=== PATIENT | female | born 1950 | race African-American/Black ===

== ENCOUNTER 2020-10-17 22:33 | Inpatient (IN) | payer BC, MEDICARE ==
[2020-10-16] MEDS: ALBUTEROL (0.083%) 2.5MG/3ML NEB HHN SCH (23:45)
[~2020-10-17] VITALS: Ht 172.7 cm; Wt 82.6 kg
[2020-10-17] MEDS ORDERED: IPRATROPIUM BROMIDE (0.02%) 0.5MG/2.5ML NEB HHN STA (22:53)
[2020-10-17] MEDS ORDERED: METHYLPREDNISOLONE SOD SUCC 125 MG/2 ML VIAL IV STA (22:53)
[2020-10-17] MEDS ORDERED: MAGNESIUM 2 G PREMIX 50 ML IV ONE (23:00)
[2020-10-17] MEDS: ALBUTEROL (0.083%) 2.5MG/3ML NEB HHN SCH (23:05)
[2020-10-18] VITALS (95 sets, daily range): BP systolic 92–160; BP diastolic 29–91
[2020-10-18] MEDS: ALBUTEROL (0.083%) 2.5MG/3ML NEB HHN SCH
[2020-10-18] MEDS ORDERED: MORPHINE SULFATE 2 MG/ML CPJ (NOT FOR IM USE) IV ONE
[2020-10-18 00:07] LABS: BASOPHILS % 0.5 % (0.0-2.0); EOSINOPHILS % 0.8 % (0.0-5.0); HEMOGLOBIN. 12.1 g/dL (12.0-16.0); LYMPHOCYTES % 48.7 % (20.0-50.0); MEAN CORPUSCULAR HEMOGLOBIN 29.7 pg (28.0-32.0); MEAN CORPUSCULAR VOLUME 90.9 fL (81.0-99.0); MEAN PLATELET VOLUME 9.8 fl (7.4-10.4); MONOCYTES % 4.9 % (2.0-8.0); NEUTROPHILS % 45.1 % (40.0-76.0); PLATELET 263 x1000/uL (130-400); RED BLOOD CELL COUNT 4.08 mill/uL (4.2-5.4); RED CELL DISTRIBUTION WIDTH 14.9 % (11.6-14.6)
[2020-10-18 00:15] LABS: CHLORIDE 107 mEq/L (98-107)
[2020-10-18 00:17] LABS: PROTHROMBIN TIME 11.2 sec (9.6-11.0)
[2020-10-18] MEDS ORDERED: ASPIRIN 325MG EC TABLET PO NR (00:30)
[2020-10-18] MEDS ORDERED: SODIUM CHLORIDE 0.9% 1000ML BAG (SEPSIS BOLUS) IV NR (01:00)
[2020-10-18] MEDS ORDERED: LEVOFLOXACIN 750MG PREMIX 150 ML IV NR (01:00)
[2020-10-18 04:37] LABS: CLARITY URINE CLOUDY (CLEAR); COLOR URINE YELLOW (YELLOW); KETONES URINE TRACE (NEGATIVE); LEUKOCYTE ESTERASE URINE 2+ (NEGATIVE); NITRITE URINE POSITIVE (NEGATIVE); OCCULT BLOOD URINE TRACE (NEGATIVE); PROTEIN URINE 1+ (NEGATIVE); SPECIFIC GRAVITY URINE 1.019 (1.005-1.030)
[2020-10-18] MEDS ORDERED: LIDOCAINE HCL/PF 1% 2ML VIAL ONE (09:00)
[2020-10-18] MEDS ORDERED: CLONIDINE 0.1MG TABLET PO PRN (10:00)
[2020-10-18] MEDS ORDERED: LEVOFLOXACIN 500MG PREMIX 100 ML IV SCH (10:00)
[2020-10-18] MEDS ORDERED: ONDANSETRON HCL 4MG/2ML INJ IV PRN (10:00)
[2020-10-18] MEDS ORDERED: GUAIFENESIN 200MG/10ML SUGAR FREE UDC PO PRN (10:00)
[2020-10-18] MEDS ORDERED: ACETAMINOPHEN 325MG TABLET PO PRN (10:00)
[2020-10-18] MEDS: FUROSEMIDE 40MG/4ML VIAL IVP SCH (10:53)
[2020-10-18] MEDS ORDERED: LEVOFLOXACIN 750MG PREMIX 150 ML IV SCH (11:00)
[2020-10-18] MEDS ORDERED: IOHEXOL-300 100 ML BOTTLE ONE (11:15)
[2020-10-18] MEDS ORDERED: DEXTROSE 50% WATER 50ML SYRINGE IV PRN (12:15)
[2020-10-18 12:27] LABS: BG BASE EXCESS -5.6 mmol/L (-2.0-2.0); BG CARBOXYHEMOGLOBIN 0.3 % (0.5-1.5); BG FRACTION INSPIRED OXYGEN 100; BG HCO3 ACT 22.4 mmol/L (22.0-26.0); BG METHEMOGLOBIN 0.2 % (0.0-1.5); BG OXYHEMOGLOBIN 98.5 % (94.0-97.0); BG PCO2 55.4 mmHg (35.0-45.0); BG PH 7.225 (7.350-7.450); BG PO2 206.4 mmHg (75.0-100.0); BG SAMPLE SITE RIGHT BRACHIAL; BG TOTAL HEMOGLOBIN 12.2 g/dL (12.0-18.0); BG VENT MODE MASK - NRB
[2020-10-18] MEDS: BLOOD SUGAR DIAGNOSTIC STRIP TEST SCH ×3 (13:00→20:52)
[2020-10-18] MEDS ORDERED: PANTOPRAZOLE SODIUM 40 MG/VIAL IV NR (13:30)
[2020-10-18] MEDS ORDERED: HYDROMORPHONE HCL/PF 2MG/ML CPJ IV NR (13:30)
[2020-10-18] MEDS: ENOXAPARIN 40MG/0.4ML SYR SUBCUT SCH (14:12)
[2020-10-18] MEDS: METHYLPREDNISOLONE SOD SUCC 40 MG/ML VIAL IV SCH ×3 (14:12→23:48)
[2020-10-18] MEDS: DEXT 5%/0.45% NACL 1000ML 1,000 ML IV SCH (14:13)
[2020-10-18] MEDS: INSULIN LISPRO 100 UNITS/ML SUBCUT SCH ×3 (14:15→20:58)
[2020-10-18 15:52] LABS: AMYLASE 41 IU/L (25-115)
[2020-10-18] MEDS ORDERED: FUROSEMIDE 40MG/4ML VIAL IVP NR (21:15)
[2020-10-18] MEDS: IPRATROPIUM/ALBUTEROL 0.5-3(2.5)MG/3ML NEB HHN SCH (21:18)
[2020-10-18] MEDS: LACTULOSE 20G/30ML UDC PO SCH (21:37)
[2020-10-18] MEDS: HYDROMORPHONE HCL/PF 2MG/ML CPJ IV PRN (21:45)
[2020-10-19] VITALS (45 sets, daily range): BP systolic 79–146; BP diastolic 40–123
[2020-10-19] MEDS: VANCOMYCIN 1 G PREMIX 200 ML IV SCH (00:04)
[2020-10-19] MEDS: IPRATROPIUM/ALBUTEROL 0.5-3(2.5)MG/3ML NEB HHN SCH ×5 (00:25→20:06)
[2020-10-19] MEDS: DEXT 5%/0.45% NACL 1000ML 1,000 ML IV SCH (03:32)
[2020-10-19] MEDS: LEVOFLOXACIN 750MG PREMIX 150 ML IV SCH (05:06)
[2020-10-19] MEDS: LACTULOSE 20G/30ML UDC PO SCH ×3 (05:14→22:00)
[2020-10-19] MEDS: METHYLPREDNISOLONE SOD SUCC 40 MG/ML VIAL IV SCH ×4 (05:14→23:19)
[2020-10-19 05:29] LABS: HEMATOCRIT. 32.5 % (36.0-48.0); HEMOGLOBIN. 10.5 g/dL (12.0-16.0); MEAN CORPUSCULAR VOLUME 89.3 fL (81.0-99.0); MEAN PLATELET VOLUME 9.4 fl (7.4-10.4); PLATELET 217 x1000/uL (130-400); RED BLOOD CELL COUNT 3.64 mill/uL (4.2-5.4); RED CELL DISTRIBUTION WIDTH 14.8 % (11.6-14.6)
[2020-10-19] MEDS: HYDROMORPHONE HCL/PF 2MG/ML CPJ IV PRN ×2 (05:33→21:46)
[2020-10-19 05:36] LABS: CHLORIDE 105 mEq/L (98-107)
[2020-10-19] MEDS: BLOOD SUGAR DIAGNOSTIC STRIP TEST SCH ×4 (06:02→21:00)
[2020-10-19] MEDS: INSULIN LISPRO 100 UNITS/ML SUBCUT SCH ×4 (06:10→23:20)
[2020-10-19] MEDS: FUROSEMIDE 40MG/4ML VIAL IVP SCH (09:04)
[2020-10-19 09:26] LABS: BG BASE EXCESS -1.5 mmol/L (-2.0-2.0); BG CARBOXYHEMOGLOBIN 0.3 % (0.5-1.5); BG DEOXYHEMOGLOBIN 4.9 % (0.0-5.0); BG FRACTION INSPIRED OXYGEN 40; BG HCO3 ACT 22.3 mmol/L (22.0-26.0); BG METHEMOGLOBIN 0.1 % (0.0-1.5); BG OXYGEN SATURATION 95.1 % (92.0-98.5); BG OXYHEMOGLOBIN 94.7 % (94.0-97.0); BG PCO2 34.4 mmHg (35.0-45.0); BG PO2 73.4 mmHg (75.0-100.0); BG SAMPLE SITE RIGHT RADIAL; BG TOTAL HEMOGLOBIN 10.8 g/dL (12.0-18.0); BG VENT MODE VAPOTHERM
[2020-10-19 10:39] LABS: PLATELET ESTIMATE NORMAL
[2020-10-19] MEDS: ENOXAPARIN 40MG/0.4ML SYR SUBCUT SCH (11:00)
[2020-10-19] MEDS: METRONIDAZOLE 500 MG PREMIX 100 ML IV SCH ×2 (13:02→21:46)
[2020-10-19] MEDS ORDERED: MINERAL OIL ENEMA 133ML PR NR (15:30)
[2020-10-19] MEDS: OMEPRAZOLE 20MG CAPSULE EXTENDED RELEASE PO SCH (20:41)
[2020-10-20] VITALS (19 sets, daily range): BP systolic 92–135; BP diastolic 36–87
[2020-10-20] MEDS: IPRATROPIUM/ALBUTEROL 0.5-3(2.5)MG/3ML NEB HHN SCH ×5 (00:03→20:31)
[2020-10-20] MEDS: VANCOMYCIN 1 G PREMIX 200 ML IV SCH (01:15)
[2020-10-20] MEDS: DEXT 5%/0.45% NACL 1000ML 1,000 ML IV SCH ×3 (01:15→21:27)
[2020-10-20] MEDS: HYDROMORPHONE HCL/PF 2MG/ML CPJ IV PRN (03:58)
[2020-10-20 05:48] LABS: HEMATOCRIT. 34.1 % (36.0-48.0); HEMOGLOBIN. 11.1 g/dL (12.0-16.0); MEAN CORPUSCULAR HEMOGLOBIN 29.1 pg (28.0-32.0); MEAN CORPUSCULAR VOLUME 89.6 fL (81.0-99.0); MEAN PLATELET VOLUME 9.9 fl (7.4-10.4); PLATELET 228 x1000/uL (130-400); RED CELL DISTRIBUTION WIDTH 14.7 % (11.6-14.6)
[2020-10-20 05:58] LABS: CHLORIDE 104 mEq/L (98-107)
[2020-10-20] MEDS: LACTULOSE 20G/30ML UDC PO SCH (06:00)
[2020-10-20] MEDS ORDERED: LEVOFLOXACIN 750MG PREMIX 150 ML IV SCH (06:00)
[2020-10-20] MEDS: METRONIDAZOLE 500 MG PREMIX 100 ML IV SCH ×3 (06:08→21:16)
[2020-10-20] MEDS: METHYLPREDNISOLONE SOD SUCC 40 MG/ML VIAL IV SCH ×3 (06:09→17:29)
[2020-10-20] MEDS: BLOOD SUGAR DIAGNOSTIC STRIP TEST SCH ×4 (06:30→21:18)
[2020-10-20] MEDS: OMEPRAZOLE 20MG CAPSULE EXTENDED RELEASE PO SCH ×2 (06:30→21:16)
[2020-10-20] MEDS: LEVOFLOXACIN 750MG PREMIX 150 ML IV SCH (07:26)
[2020-10-20] MEDS: INSULIN LISPRO 100 UNITS/ML SUBCUT SCH ×4 (07:43→21:17)
[2020-10-20] MEDS: FUROSEMIDE 40MG/4ML VIAL IVP SCH (09:13)
[2020-10-20] MEDS: ENOXAPARIN 40MG/0.4ML SYR SUBCUT SCH (12:25)
[2020-10-20] MEDS: ASPIRIN 81MG TABLET PO SCH (12:25)
[2020-10-20 19:13] LABS: PLATELET ESTIMATE NORMAL
[2020-10-21] VITALS (7 sets, daily range): BP systolic 102–127; BP diastolic 65–83
[2020-10-21] MEDS: METHYLPREDNISOLONE SOD SUCC 40 MG/ML VIAL IV SCH ×4 (00:07→21:35)
[2020-10-21] MEDS: VANCOMYCIN 1 G PREMIX 200 ML IV SCH (00:07)
[2020-10-21] MEDS: IPRATROPIUM/ALBUTEROL 0.5-3(2.5)MG/3ML NEB HHN SCH ×5 (00:39→21:42)
[2020-10-21] MEDS: METRONIDAZOLE 500 MG PREMIX 100 ML IV SCH ×3 (05:00→21:34)
[2020-10-21] MEDS: HYDROMORPHONE HCL/PF 2MG/ML CPJ IV PRN (05:48)
[2020-10-21] MEDS: LEVOFLOXACIN 750MG PREMIX 150 ML IV SCH (06:01)
[2020-10-21] MEDS: OMEPRAZOLE 20MG CAPSULE EXTENDED RELEASE PO SCH ×2 (06:01→21:35)
[2020-10-21] MEDS: BLOOD SUGAR DIAGNOSTIC STRIP TEST SCH ×4 (06:02→21:35)
[2020-10-21] MEDS: INSULIN LISPRO 100 UNITS/ML SUBCUT SCH ×4 (06:35→21:36)
[2020-10-21] MEDS: ASPIRIN 81MG TABLET PO SCH (09:23)
[2020-10-21] MEDS: FUROSEMIDE 40MG/4ML VIAL IVP SCH (09:23)
[2020-10-21] MEDS: ENOXAPARIN 40MG/0.4ML SYR SUBCUT SCH (12:20)
[2020-10-21] MEDS: LACTULOSE 20G/30ML UDC PO SCH (21:34)
[2020-10-22] VITALS: BP 107/67
[2020-10-22] MEDS: VANCOMYCIN 1 G PREMIX 200 ML IV SCH (00:39)
[2020-10-22] MEDS: IPRATROPIUM/ALBUTEROL 0.5-3(2.5)MG/3ML NEB HHN SCH ×6 (01:32→21:31)
[2020-10-22 04:00] VITALS: BP 111/72
[2020-10-22] MEDS: METRONIDAZOLE 500 MG PREMIX 100 ML IV SCH ×2 (04:52→14:27)
[2020-10-22] MEDS: OMEPRAZOLE 20MG CAPSULE EXTENDED RELEASE PO SCH ×2 (06:13→22:10)
[2020-10-22] MEDS: BLOOD SUGAR DIAGNOSTIC STRIP TEST SCH ×4 (06:13→21:00)
[2020-10-22] MEDS: LACTULOSE 20G/30ML UDC PO SCH ×3 (06:13→22:10)
[2020-10-22] MEDS: LEVOFLOXACIN 750MG PREMIX 150 ML IV SCH (06:13)
[2020-10-22] MEDS: INSULIN LISPRO 100 UNITS/ML SUBCUT SCH ×4 (06:14→22:12)
[2020-10-22 08:00] VITALS: BP 123/81
[2020-10-22] MEDS: METHYLPREDNISOLONE SOD SUCC 40 MG/ML VIAL IV SCH ×2 (08:43→22:10)
[2020-10-22] MEDS: FUROSEMIDE 40MG/4ML VIAL IVP SCH (08:43)
[2020-10-22] MEDS: ASPIRIN 81MG TABLET PO SCH (08:43)
[2020-10-22] MEDS: BISACODYL 5MG TABLET PO SCH (08:43)
[2020-10-22] MEDS ORDERED: IPRA3AMP9 HHN (10:11)
[2020-10-22] MEDS ORDERED: METR500T PO (10:11)
[2020-10-22] MEDS ORDERED: ASPI-1160 PO (10:11)
[2020-10-22] MEDS ORDERED: LEVO500T89 PO (10:11)
[2020-10-22] MEDS ORDERED: MED4 MT (10:11)
[2020-10-22] MEDS ORDERED: ALBU18HF2 IH (10:11)
[2020-10-22] MEDS ORDERED: FURO10VI3 PO (10:11)
[2020-10-22] MEDS ORDERED: NA PHOS,M-B/NA PHOS,DI-BA ENEMA 118ML PR NR (10:15)
[2020-10-22 11:18] LABS: BG BASE EXCESS 1.8 mmol/L (-2.0-2.0); BG CARBOXYHEMOGLOBIN 0.3 % (0.5-1.5); BG DEOXYHEMOGLOBIN 8.8 % (0.0-5.0); BG FRACTION INSPIRED OXYGEN 21; BG HCO3 ACT 26.8 mmol/L (22.0-26.0); BG METHEMOGLOBIN 0.3 % (0.0-1.5); BG OXYGEN SATURATION 91.1 % (92.0-98.5); BG OXYHEMOGLOBIN 90.6 % (94.0-97.0); BG PCO2 43.2 mmHg (35.0-45.0); BG PO2 58.7 mmHg (75.0-100.0); BG SAMPLE SITE RIGHT BRACHIAL; BG VENT MODE ROOM AIR
[2020-10-22 12:00] VITALS: BP 121/78
[2020-10-22] MEDS: ENOXAPARIN 40MG/0.4ML SYR SUBCUT SCH (14:23)
[2020-10-22 16:00] VITALS: BP 119/79
[2020-10-22] MEDS: METRONIDAZOLE 500MG TABLET PO SCH ×2 (17:55→22:10)
[2020-10-22 20:00] VITALS: BP 115/73
[2020-10-23] VITALS: BP 119/80
[2020-10-23] MEDS: VANCOMYCIN 1 G PREMIX 200 ML IV SCH (01:26)
[2020-10-23] MEDS: IPRATROPIUM/ALBUTEROL 0.5-3(2.5)MG/3ML NEB HHN SCH ×3 (03:18→13:45)
[2020-10-23 04:00] VITALS: BP 108/74
[2020-10-23] MEDS: BLOOD SUGAR DIAGNOSTIC STRIP TEST SCH ×2 (06:55→11:26)
[2020-10-23] MEDS: OMEPRAZOLE 20MG CAPSULE EXTENDED RELEASE PO SCH (06:55)
[2020-10-23] MEDS: LACTULOSE 20G/30ML UDC PO SCH (06:55)
[2020-10-23] MEDS: INSULIN LISPRO 100 UNITS/ML SUBCUT SCH ×2 (06:56→11:44)
[2020-10-23 08:00] VITALS: BP 120/74
[2020-10-23] MEDS: BISACODYL 5MG TABLET PO SCH (08:59)
[2020-10-23] MEDS: METHYLPREDNISOLONE SOD SUCC 40 MG/ML VIAL IV SCH (08:59)
[2020-10-23] MEDS: FUROSEMIDE 40MG/4ML VIAL IVP SCH (08:59)
[2020-10-23] MEDS: ASPIRIN 81MG TABLET PO SCH (08:59)
[2020-10-23] MEDS: ENOXAPARIN 40MG/0.4ML SYR SUBCUT SCH (11:38)
[2020-10-23 12:00] VITALS: BP 113/80
[2020-10-23 14:49] VITALS: BP 113/80
[2020-10-23] MEDS ORDERED: FAMOTIDINE 20MG TABLET PO SCH (21:00)
== END 2020-10-23 16:40 | disposition home health service (06) | DRG 871 ==
LOC: ER 22:33 → EDBEDREQ 10-18 01:51 → 7WST 10-18 01:59 → EDBEDREQ 10-18 02:15 → ENRESERV 10-18 07:29 → CANRESERV 10-18 07:29 → ENRESERV 10-18 08:26 → ER 10-18 11:13 → MICUSO 10-18 13:17 → MICUNO 10-19 06:48 → 5WST 10-20 16:56
PROVIDERS: ADMIT Internal Medicine; ATTEND Internal Medicine
PROC: 5A09357 Assistance with Respiratory Ventilation, Less than 24 Consecutive Hours, Continuous Positive Airway Pressure (ICD-10-PCS; principal; 2020-10-17)
DX: A41.9 Sepsis, unspecified organism (principal); J18.9 Pneumonia, unspecified organism; J96.01 Acute respiratory failure with hypoxia; J96.02 Acute respiratory failure with hypercapnia; J44.1 Chronic obstructive pulmonary disease with (acute) exacerbation; N39.0 Urinary tract infection, site not specified; E44.0 Moderate protein-calorie malnutrition; E87.2 Acidosis; J44.0 Chronic obstructive pulmonary disease with (acute) lower respiratory infection; I50.40 Unspecified combined systolic (congestive) and diastolic (congestive) heart failure; K80.01 Calculus of gallbladder with acute cholecystitis with obstruction; E11.65 Type 2 diabetes mellitus with hyperglycemia; I11.0 Hypertensive heart disease with heart failure; F17.200 Nicotine dependence, unspecified, uncomplicated; Z20.822 Contact with and (suspected) exposure to COVID-19; K59.00 Constipation, unspecified; N81.10 Cystocele, unspecified; D64.9 Anemia, unspecified; K57.90 Diverticulosis of intestine, part unspecified, without perforation or abscess without bleeding; K44.9 Diaphragmatic hernia without obstruction or gangrene; R65.20 Severe sepsis without septic shock; Z98.1 Arthrodesis status; Z71.6 Tobacco abuse counseling; R00.0 Tachycardia, unspecified
CPT/HCPCS: 36415; 36600; 71045; 71275; 74176; 76700; 78227; 80048; 80053; 80076; 81003; 82150; 82375; 82805; 82962; 83036; 83605; 83880; 84145; 84443; 84484; 85025; 85379; 93005; 93306; 93970; 94640; 94660; 97162; 97535; 99291; A9537; C9113; J1170; J1650; J1815; J1940; J1956; J2270; J2920; J2930; J3370; J3475; J3490; J7040; Q9967; U0003

== ENCOUNTER 2020-11-22 08:36 | Inpatient (IN) | payer MEDICARE ==
[~2020-11-22] VITALS: Ht 172.7 cm; Wt 88.5 kg
[~2020-11-22 08:36] MED LIST: ALBU18HF2 IH; ASPI-1160 PO; ATOR40TA70 MT; CLOP-31 MT; FURO40TA5 MT; IPRA3AMP9 HHN; METF-414 PO
[2020-11-22] MEDS ORDERED: ALBUTEROL (0.083%) 2.5MG/3ML NEB HHN STA (08:48)
[2020-11-22] MEDS ORDERED: IPRATROPIUM BROMIDE (0.02%) 0.5MG/2.5ML NEB HHN STA (08:48)
[2020-11-22] MEDS ORDERED: METHYLPREDNISOLONE SOD SUCC 125 MG/2 ML VIAL IV STA (08:48)
[2020-11-22 09:01] LABS: EOSINOPHILS % 1.3 % (0.0-5.0); HEMATOCRIT. 36.7 % (36.0-48.0); LYMPHOCYTES % 52.7 % (20.0-50.0); MEAN CORPUSCULAR HEMOGLOBIN 28.6 pg (28.0-32.0); MEAN CORPUSCULAR VOLUME 87.8 fL (81.0-99.0); MEAN PLATELET VOLUME 9.7 fl (7.4-10.4); MONOCYTES % 8.5 % (2.0-8.0); NEUTROPHILS % 36.5 % (40.0-76.0); PLATELET 245 x1000/uL (130-400); RED BLOOD CELL COUNT 4.18 mill/uL (4.2-5.4); RED CELL DISTRIBUTION WIDTH 14.7 % (11.6-14.6)
[2020-11-22 09:06] LABS: CHLORIDE 103 mEq/L (98-107)
[2020-11-22] MEDS ORDERED: LIDOCAINE HCL 1% 20ML VIAL (Pyxis) INJ INFIL ONE (09:15)
[2020-11-22] MEDS ORDERED: ENALAPRIL 2.5MG/2ML VIAL 2ML IV ONE (10:15)
[2020-11-22] MEDS ORDERED: FUROSEMIDE 40MG/4ML VIAL IVP ONE (10:15)
[2020-11-22] MEDS ORDERED: ENALAPRIL 1.25MG/ML VIAL 1ML IV ONE (10:30)
[2020-11-22 16:00] VITALS: BP 114/76
[2020-11-22 16:39] VITALS: BP 114/76
[2020-11-22] MEDS ORDERED: MAGNESIUM/ALUMINUM HYDROXIDE/SIMETHICONE 30ML UDC PO PRN (18:15)
[2020-11-22] MEDS ORDERED: DEXTROSE 50% WATER 50ML SYRINGE IV PRN (18:15)
[2020-11-22] MEDS ORDERED: LORAZEPAM 2MG/ML CPJ IV PRN (18:15)
[2020-11-22] MEDS ORDERED: IPRATROPIUM/ALBUTEROL 0.5-3(2.5)MG/3ML NEB NEB PRN (18:15)
[2020-11-22] MEDS ORDERED: CLONIDINE 0.1MG TABLET PO PRN (18:15)
[2020-11-22] MEDS ORDERED: HYDRALAZINE 20MG/ML VIAL IV PRN (18:15)
[2020-11-22] MEDS ORDERED: DIPHENHYDRAMINE 50MG/ML VIAL IV PRN (18:15)
[2020-11-22 20:00] VITALS: BP 104/62
[2020-11-22] MEDS ORDERED: INSULIN LISPRO 100 UNITS/ML SUBCUT SCH (21:00)
[2020-11-22] MEDS ORDERED: ALLOPURINOL 300 MG TABLET PO SCH (21:00)
[2020-11-22] MEDS: HYDROCODONE/ACETAMINOPHEN 10/325MG TABLET PO PRN (21:00)
[2020-11-22] MEDS: CARVEDILOL 3.125 MG TABLET PO SCH ×2 (21:00→21:07)
[2020-11-22] MEDS: FUROSEMIDE 40MG/4ML VIAL IVP SCH (21:06)
[2020-11-22] MEDS: BLOOD SUGAR DIAGNOSTIC STRIP TEST SCH (21:09)
[2020-11-22] MEDS: ENOXAPARIN 40MG/0.4ML SYR SUBCUT SCH (21:53)
[2020-11-22] MEDS: SODIUM CHLORIDE 0.9% INJ 3ML FLUSH IVF SCH (22:00)
[2020-11-22] MEDS ORDERED: INSULIN LISPRO 100 UNITS/ML SUBCUT NR (22:00)
[2020-11-22] MEDS ORDERED: NITROGLYCERIN 0.4MG TABLET SL SL PRN (22:30)
[2020-11-22] MEDS ORDERED: ACETAMINOPHEN 325MG TABLET PO PRN (22:30)
[2020-11-22] MEDS: MORPHINE SULFATE 2 MG/ML CPJ (NOT FOR IM USE) IV PRN (22:34)
[2020-11-23] VITALS: BP 104/64
[2020-11-23 00:09] LABS: CREATINE KINASE MB FRACTION 1.3 ng/mL (0.5-3.6)
[2020-11-23 04:00] VITALS: BP 95/39
[2020-11-23] MEDS: SODIUM CHLORIDE 0.9% INJ 3ML FLUSH IVF SCH ×3 (06:00→21:32)
[2020-11-23 06:09] LABS: CHLORIDE 106 mEq/L (98-107)
[2020-11-23 06:10] LABS: BASOPHILS % 0.4 % (0.0-2.0); HEMATOCRIT. 34.3 % (36.0-48.0); HEMOGLOBIN. 11.1 g/dL (12.0-16.0); MEAN CORPUSCULAR HEMOGLOBIN 28.6 pg (28.0-32.0); MEAN PLATELET VOLUME 9.9 fl (7.4-10.4); MONOCYTES % 10.5 % (2.0-8.0); NEUTROPHILS % 60.1 % (40.0-76.0); PLATELET 216 x1000/uL (130-400); RED CELL DISTRIBUTION WIDTH 14.5 % (11.6-14.6)
[2020-11-23] MEDS: INSULIN LISPRO 100 UNITS/ML SUBCUT SCH ×4 (06:18→20:44)
[2020-11-23] MEDS: BLOOD SUGAR DIAGNOSTIC STRIP TEST SCH ×4 (06:18→20:44)
[2020-11-23 06:21] LABS: CREATINE KINASE 66 IU/L (26-192); CREATINE KINASE MB FRACTION 1.5 ng/mL (0.5-3.6)
[2020-11-23 08:00] VITALS: BP 94/56
[2020-11-23] MEDS: CARVEDILOL 3.125 MG TABLET PO SCH ×2 (09:00→19:57)
[2020-11-23] MEDS: FUROSEMIDE 40MG/4ML VIAL IVP SCH (09:36)
[2020-11-23] MEDS: ASPIRIN 81MG TABLET PO SCH (11:45)
[2020-11-23 12:00] VITALS: BP 82/48
[2020-11-23 16:00] VITALS: BP 94/53
[2020-11-23] MEDS: DOCUSATE SODIUM 100MG CAPSULE PO PRN (18:56)
[2020-11-23] MEDS: ACETAMINOPHEN 325MG TABLET PO PRN (19:57)
[2020-11-23] MEDS: ENOXAPARIN 40MG/0.4ML SYR SUBCUT SCH (19:57)
[2020-11-23] MEDS: ATORVASTATIN CALCIUM 20MG TABLET PO SCH (19:58)
[2020-11-23 20:00] VITALS: BP 93/56
[2020-11-23] MEDS: IPRATROPIUM/ALBUTEROL 0.5-3(2.5)MG/3ML NEB HHN SCH (20:48)
[2020-11-23] MEDS: BUDESONIDE 0.5MG/2ML NEB HHN SCH (20:49)
[2020-11-24] VITALS: BP 105/69
[2020-11-24] MEDS: NA PHOS,M-B/NA PHOS,DI-BA ENEMA 118ML PR PRN ×2 (00:11→10:03)
[2020-11-24] MEDS: IPRATROPIUM/ALBUTEROL 0.5-3(2.5)MG/3ML NEB HHN SCH ×4 (01:23→20:21)
[2020-11-24 04:00] VITALS: BP 103/66
[2020-11-24] MEDS: BLOOD SUGAR DIAGNOSTIC STRIP TEST SCH ×4 (06:29→21:03)
[2020-11-24] MEDS: INSULIN LISPRO 100 UNITS/ML SUBCUT SCH ×4 (06:29→21:02)
[2020-11-24] MEDS: SODIUM CHLORIDE 0.9% INJ 3ML FLUSH IVF SCH ×3 (06:29→20:56)
[2020-11-24] MEDS: BUDESONIDE 0.5MG/2ML NEB HHN SCH ×2 (07:55→20:21)
[2020-11-24 08:00] VITALS: BP 99/67
[2020-11-24] MEDS: DOCUSATE SODIUM 100MG CAPSULE PO PRN (08:58)
[2020-11-24] MEDS: FUROSEMIDE 40MG/4ML VIAL IVP SCH (08:58)
[2020-11-24] MEDS: CARVEDILOL 3.125 MG TABLET PO SCH ×2 (09:00→21:00)
[2020-11-24] MEDS: HYDROCODONE/ACETAMINOPHEN 10/325MG TABLET PO PRN (09:01)
[2020-11-24] MEDS: ASPIRIN 81MG TABLET PO SCH (09:03)
[2020-11-24 12:00] VITALS: BP 91/59
[2020-11-24 16:00] VITALS: BP 92/59
[2020-11-24 20:00] VITALS: BP 95/60
[2020-11-24] MEDS: ATORVASTATIN CALCIUM 20MG TABLET PO SCH (20:56)
[2020-11-24] MEDS: ENOXAPARIN 40MG/0.4ML SYR SUBCUT SCH (20:56)
[2020-11-24] MEDS ORDERED: DIPHENHYDRAMINE 25MG CAPSULE PO PRN (21:00)
[2020-11-25] VITALS: BP 100/64
[2020-11-25] MEDS: HYDROCODONE/ACETAMINOPHEN 10/325MG TABLET PO PRN ×3 (00:40→23:12)
[2020-11-25] MEDS: IPRATROPIUM/ALBUTEROL 0.5-3(2.5)MG/3ML NEB HHN SCH ×4 (02:24→19:46)
[2020-11-25 04:00] VITALS: BP 104/66
[2020-11-25] MEDS: BLOOD SUGAR DIAGNOSTIC STRIP TEST SCH ×4 (05:29→22:09)
[2020-11-25] MEDS: LACTULOSE 20G/30ML UDC PO PRN (05:35)
[2020-11-25] MEDS: SODIUM CHLORIDE 0.9% INJ 3ML FLUSH IVF SCH ×3 (05:36→21:59)
[2020-11-25] MEDS: FUROSEMIDE 40MG/4ML VIAL IVP SCH ×2 (05:38→09:40)
[2020-11-25] MEDS ORDERED: MAGNESIUM 4 G PREMIX 100 ML IV NR (06:30)
[2020-11-25] MEDS: INSULIN LISPRO 100 UNITS/ML SUBCUT SCH ×4 (07:15→22:36)
[2020-11-25 08:00] VITALS: BP 109/75
[2020-11-25] MEDS: CARVEDILOL 3.125 MG TABLET PO SCH ×2 (09:00→21:57)
[2020-11-25] MEDS: ASPIRIN 81MG TABLET PO SCH (09:40)
[2020-11-25] MEDS: BUDESONIDE 0.5MG/2ML NEB HHN SCH ×2 (10:00→19:46)
[2020-11-25 12:00] VITALS: BP 107/74
[2020-11-25 16:00] VITALS: BP 104/68
[2020-11-25 20:00] VITALS: BP 102/65
[2020-11-25] MEDS ORDERED: DOCUSATE SODIUM 100MG CAPSULE PO SCH (21:00)
[2020-11-25] MEDS ORDERED: ASCORBIC ACID 500 MG TABLET PO SCH (21:00)
[2020-11-25] MEDS ORDERED: BISACODYL 10MG SUPP PR PRN (21:00)
[2020-11-25] MEDS ORDERED: CHLORHEXIDINE GLUCONATE 4% EXTERNAL USE TOP SCH (21:00)
[2020-11-25] MEDS: ATORVASTATIN CALCIUM 20MG TABLET PO SCH (21:57)
[2020-11-25] MEDS: ALLOPURINOL 300 MG TABLET PO SCH (21:58)
[2020-11-26] VITALS (62 sets, daily range): BP systolic 1–124; BP diastolic -1–78
[2020-11-26] MEDS: IPRATROPIUM/ALBUTEROL 0.5-3(2.5)MG/3ML NEB HHN SCH ×5 (01:49→21:29)
[2020-11-26] MEDS: MORPHINE SULFATE 2 MG/ML CPJ (NOT FOR IM USE) IV PRN ×2 (04:14→18:20)
[2020-11-26] MEDS ORDERED: CHLORHEXIDINE GLUCONATE 4% EXTERNAL USE TOP SCH (05:00)
[2020-11-26] MEDS: ALLOPURINOL 300 MG TABLET PO SCH (05:05)
[2020-11-26] MEDS: SODIUM CHLORIDE 0.9% INJ 3ML FLUSH IVF SCH ×3 (05:06→22:00)
[2020-11-26] MEDS ORDERED: SKIN ADHESIVE 0.7 GM EA TOP ONE (05:10)
[2020-11-26] MEDS ORDERED: THROMBIN (BOVINE) 5000 UNITS/VIAL TOP ONE ×2 (05:10→05:16)
[2020-11-26] MEDS ORDERED: BACITRACIN 50,000 UNITS/VIAL ONE (05:11)
[2020-11-26] MEDS ORDERED: HEPARIN 1000 UNITS/ML 10ML ONE ×2 (05:18→06:58)
[2020-11-26] MEDS: BLOOD SUGAR DIAGNOSTIC STRIP TEST SCH ×15 (05:24→23:57)
[2020-11-26] MEDS ORDERED: ACETAMINOPHEN 500MG TABLET ONE (05:25)
[2020-11-26] MEDS: INSULIN LISPRO 100 UNITS/ML SUBCUT SCH (05:34)
[2020-11-26] MEDS ORDERED: VANCOMYCIN 1 G PREMIX 200 ML IV SCH (06:00)
[2020-11-26] MEDS ORDERED: PAPAVERINE HCL 180MG in SODIUM CHLORIDE 0.9% 24ML IV NR (06:00)
[2020-11-26] MEDS ORDERED: NOREPINEPHRINE 8 MG in DEXT 5% WATER 242 ML IV NR (06:00)
[2020-11-26] MEDS ORDERED: DEL NIDO ELECTROLYTE-S(PH 7.4) 1,000 ML IV NR ×2 (06:00)
[2020-11-26] MEDS ORDERED: INSULIN REGULAR (DRIP) 100 UNITS in SODIUM CHLORIDE 0.9% 99 ML IV NR (06:00)
[2020-11-26] MEDS ORDERED: FENTANYL CITRATE/PF 50MCG/ML 2ML VIAL ONE (06:52)
[2020-11-26] MEDS ORDERED: ETOMIDATE 2MG/ML 10ML VIAL IV ONE (06:54)
[2020-11-26] MEDS ORDERED: PROPOFOL 200MG/20ML VIAL IV ONE (06:54)
[2020-11-26] MEDS ORDERED: ROCURONIUM BROMIDE 10MG/ML VIAL 5ML IV ONE (06:56)
[2020-11-26] MEDS ORDERED: CALCIUM CHLORIDE 1GM/10ML SYR IV ONE (06:59)
[2020-11-26] MEDS ORDERED: LIDOCAINE HCL 2% 5ML SYRINGE IV ONE (06:59)
[2020-11-26] MEDS ORDERED: EPINEPHRINE 5 MG in DEXT 5% WATER 245 ML IV NR (07:00)
[2020-11-26] MEDS ORDERED: NICARDIPINE 40MG/200ML PREMIX 200 ML IV NR (07:00)
[2020-11-26] MEDS ORDERED: DOPAMINE IV NR (07:00)
[2020-11-26] MEDS ORDERED: DOBUTAMINE IV NR (07:00)
[2020-11-26] MEDS ORDERED: DEXT 5% IV NR ×2 (07:00)
[2020-11-26] MEDS ORDERED: WATER IV NR ×2 (07:00)
[2020-11-26] MEDS ORDERED: LABETALOL HCL 5MG/ML VIAL 20ML IV ONE (07:01)
[2020-11-26] MEDS ORDERED: FUROSEMIDE 100MG/10ML VIAL ONE (07:01)
[2020-11-26] MEDS ORDERED: ALBUMIN HUMAN 12.5G/250ML (5%) IV ONE (07:14)
[2020-11-26] MEDS ORDERED: METOPROLOL TARTRATE 5MG/5ML VIAL IV ONE (07:39)
[2020-11-26] MEDS: CARVEDILOL 3.125 MG TABLET PO SCH ×2 (09:00→20:13)
[2020-11-26] MEDS ORDERED: KCL 10MEQ/50ML PREMIX 150 ML IV PRN (09:00)
[2020-11-26] MEDS ORDERED: KCL 10MEQ/50ML PREMIX 200 ML IV PRN (09:00)
[2020-11-26] MEDS: FUROSEMIDE 40MG/4ML VIAL IVP SCH (09:00)
[2020-11-26] MEDS: ASPIRIN 81MG TABLET PO SCH (09:00)
[2020-11-26] MEDS ORDERED: DEXTROSE 50% WATER 50ML SYRINGE IV PRN ×2 (09:00)
[2020-11-26] MEDS ORDERED: INSULIN REGULAR (DRIP) 100 UNITS in SODIUM CHLORIDE 0.9% 100 ML IV SCH (09:00)
[2020-11-26] MEDS ORDERED: METOCLOPRAMIDE HCL 10MG/2ML VIAL ONE (09:52)
[2020-11-26] MEDS ORDERED: ONDANSETRON HCL 4MG/2ML INJ ONE (09:52)
[2020-11-26] MEDS ORDERED: PROTAMINE SULFATE 10MG/ML VIAL 25ML IV ONE (10:13)
[2020-11-26] MEDS ORDERED: NEOSTIGMINE METHYLSULFATE 1MG/ML 10 ML VIAL ONE (10:30)
[2020-11-26] MEDS ORDERED: KETOROLAC 30MG/ML VIAL ONE (10:38)
[2020-11-26] MEDS ORDERED: HEPARIN 10,000 UNITS/ML VIAL ONE (10:50)
[2020-11-26] MEDS ORDERED: MAGNESIUM SULFATE 5GM/10ML VIAL IV ONE (10:50)
[2020-11-26] MEDS ORDERED: ALBUMIN HUMAN 12.5G/250ML (5%) IV PRN (11:15)
[2020-11-26] MEDS ORDERED: ALBUMIN HUMAN 25GM/100ML (25%) IV PRN (11:15)
[2020-11-26 11:49] LABS: BG BASE EXCESS 0.7 mmol/L (-2.0-2.0); BG CARBOXYHEMOGLOBIN 0.3 % (0.5-1.5); BG DEOXYHEMOGLOBIN 7.3 % (0.0-5.0); BG HCO3 ACT 26.6 mmol/L (22.0-26.0); BG METHEMOGLOBIN 0.1 % (0.0-1.5); BG OXYGEN SATURATION 92.7 % (92.0-98.5); BG OXYHEMOGLOBIN 92.3 % (94.0-97.0); BG PCO2 48.1 mmHg (35.0-45.0); BG PH 7.361 (7.350-7.450); BG PO2 73.1 mmHg (75.0-100.0); BG SAMPLE SITE ALINE; BG TOTAL HEMOGLOBIN 11.4 g/dL (12.0-18.0); BG VENT MODE MASK - SIMPLE
[2020-11-26 12:05] LABS: BASOPHILS % 0.6 % (0.0-2.0); EOSINOPHILS % 0.7 % (0.0-5.0); HEMOGLOBIN. 10.3 g/dL (12.0-16.0); LYMPHOCYTES % 18.7 % (20.0-50.0); MEAN CORPUSCULAR HEMOGLOBIN 28.3 pg (28.0-32.0); MEAN CORPUSCULAR VOLUME 87.9 fL (81.0-99.0); MEAN PLATELET VOLUME 9.4 fl (7.4-10.4); MONOCYTES % 7.9 % (2.0-8.0); NEUTROPHILS % 72.1 % (40.0-76.0); PLATELET 264 x1000/uL (130-400); RED BLOOD CELL COUNT 3.64 mill/uL (4.2-5.4); RED CELL DISTRIBUTION WIDTH 14.8 % (11.6-14.6)
[2020-11-26 12:12] LABS: CHLORIDE 104 mEq/L (98-107)
[2020-11-26] MEDS: DEXT 5%/0.45% NACL 1000ML 1,000 ML IV SCH (12:13)
[2020-11-26] MEDS: KCL 10MEQ/50ML PREMIX 100 ML IV PRN (12:20)
[2020-11-26] MEDS ORDERED: CALCIUM CHLORIDE 3,000 MG in DEXT 5% WATER 250 ML IV PRN (13:00)
[2020-11-26] MEDS: BACITRACIN 15GM TUBE TOP SCH ×2 (13:00→17:00)
[2020-11-26] MEDS: KETOROLAC 30MG/ML VIAL IV PRN ×2 (13:20→16:54)
[2020-11-26] MEDS: BUDESONIDE 0.5MG/2ML NEB HHN SCH (13:26)
[2020-11-26] MEDS: ONDANSETRON HCL 4MG/2ML INJ IV PRN ×2 (15:50→20:40)
[2020-11-26] MEDS ORDERED: ALBUMIN HUMAN 12.5G/250ML (5%) IV NR (16:45)
[2020-11-26 17:28] LABS: BASOPHILS % 0.5 % (0.0-2.0); EOSINOPHILS % 0.5 % (0.0-5.0); HEMATOCRIT. 27.6 % (36.0-48.0); HEMOGLOBIN. 9.2 g/dL (12.0-16.0); LYMPHOCYTES % 7.4 % (20.0-50.0); MEAN CORPUSCULAR HEMOGLOBIN 29.2 pg (28.0-32.0); MEAN CORPUSCULAR VOLUME 87.6 fL (81.0-99.0); MEAN PLATELET VOLUME 9.3 fl (7.4-10.4); MONOCYTES % 11.3 % (2.0-8.0); NEUTROPHILS % 80.3 % (40.0-76.0); PLATELET 228 x1000/uL (130-400); RED BLOOD CELL COUNT 3.14 mill/uL (4.2-5.4); RED CELL DISTRIBUTION WIDTH 14.9 % (11.6-14.6)
[2020-11-26 17:36] LABS: CHLORIDE 103 mEq/L (98-107)
[2020-11-26 17:42] LABS: PHOSPHORUS 3.5 mg/dL (2.5-4.9)
[2020-11-26] MEDS ORDERED: MAGNESIUM 1 G PREMIX 100 ML IV NR (18:15)
[2020-11-26] MEDS ORDERED: FUROSEMIDE 20MG/2ML VIAL IVP NR (18:30)
[2020-11-26] MEDS: MAGNESIUM 1 G PREMIX 100 ML IV SCH ×3 (18:46→20:39)
[2020-11-26] MEDS: OXYCODONE HCL/ACETAMINOPHEN 5/325MG TABLET PO PRN ×2 (20:40→23:41)
[2020-11-26] MEDS: CLOPIDOGREL 75MG TABLET PO SCH (20:42)
[2020-11-26] MEDS: ATORVASTATIN CALCIUM 20MG TABLET PO SCH (20:42)
[2020-11-26] MEDS ORDERED: ALBUMIN HUMAN 25GM/100ML (25%) IV NR (22:30)
[2020-11-26 22:36] LABS: HEMATOCRIT 26.3 % (36.0-48.0); HEMOGLOBIN 8.9 g/dL (12.0-16.0)
[2020-11-27] VITALS (101 sets, daily range): BP systolic 68–138; BP diastolic 27–76
[2020-11-27] MEDS ORDERED: FUROSEMIDE 40MG/4ML VIAL IVP SCH
[2020-11-27] MEDS ORDERED: CALCIUM CHLORIDE 3,000 MG in DEXT 5% WATER 250 ML IV SCH
[2020-11-27] MEDS: IPRATROPIUM/ALBUTEROL 0.5-3(2.5)MG/3ML NEB HHN SCH ×6 (00:46→20:18)
[2020-11-27] MEDS: BLOOD SUGAR DIAGNOSTIC STRIP TEST SCH ×23 (01:00→23:05)
[2020-11-27] MEDS: ONDANSETRON HCL 4MG/2ML INJ IV PRN ×2 (04:12→13:28)
[2020-11-27] MEDS: DOPAMINE 400MG/250ML PREMIX 250 ML IV SCH ×2 (04:21→23:46)
[2020-11-27] MEDS: OXYCODONE HCL/ACETAMINOPHEN 5/325MG TABLET PO PRN ×3 (04:39→19:36)
[2020-11-27] MEDS: SODIUM CHLORIDE 0.9% INJ 3ML FLUSH IVF SCH ×3 (05:17→21:45)
[2020-11-27] MEDS: MORPHINE SULFATE 2 MG/ML CPJ (NOT FOR IM USE) IV PRN ×2 (06:40→13:19)
[2020-11-27 07:22] LABS: BASOPHILS % 0.3 % (0.0-2.0); EOSINOPHILS % 0.9 % (0.0-5.0); HEMATOCRIT. 30.5 % (36.0-48.0); HEMOGLOBIN. 10.2 g/dL (12.0-16.0); LYMPHOCYTES % 16.3 % (20.0-50.0); MEAN PLATELET VOLUME 9.9 fl (7.4-10.4); MONOCYTES % 13.2 % (2.0-8.0); NEUTROPHILS % 69.3 % (40.0-76.0); PLATELET 237 x1000/uL (130-400); RED BLOOD CELL COUNT 3.51 mill/uL (4.2-5.4); RED CELL DISTRIBUTION WIDTH 14.5 % (11.6-14.6)
[2020-11-27] MEDS ORDERED: CLOPIDOGREL 75MG TABLET PO SCH (09:00)
[2020-11-27] MEDS: CARVEDILOL 3.125 MG TABLET PO SCH ×2 (09:00→21:00)
[2020-11-27] MEDS: ASPIRIN 81MG TABLET PO SCH (09:22)
[2020-11-27] MEDS: CLOPIDOGREL 75MG TABLET PO SCH (09:23)
[2020-11-27] MEDS: FUROSEMIDE 40MG/4ML VIAL IVP SCH (09:23)
[2020-11-27] MEDS: AMIODARONE HCL 200 MG TABLET PO SCH ×2 (09:23→16:49)
[2020-11-27] MEDS ORDERED: AMIODARONE HCL 150 MG in DEXT 5% WATER 100 ML IV NR ×2 (10:00→23:15)
[2020-11-27] MEDS: DEXT 5%/0.45% NACL 1000ML 1,000 ML IV SCH (11:39)
[2020-11-27] MEDS: BACITRACIN 15GM TUBE TOP SCH ×2 (11:39→17:05)
[2020-11-27] MEDS: GUAIFENESIN 200MG/10ML SUGAR FREE UDC PO PRN (18:46)
[2020-11-27] MEDS: ACETYLCYSTEINE 200MG/ML 20% VIAL 4ML PO SCH (20:18)
[2020-11-27] MEDS ORDERED: ALBUMIN HUMAN 25GM/100ML (25%) IV SCH ×2 (21:00→21:30)
[2020-11-27] MEDS ORDERED: FUROSEMIDE 40MG/4ML VIAL IVP NR (21:06)
[2020-11-27] MEDS: ATORVASTATIN CALCIUM 20MG TABLET PO SCH (21:20)
[2020-11-27] MEDS: ACETAMINOPHEN 325MG TABLET PO PRN (21:22)
[2020-11-27] MEDS: MIDODRINE HCL 5MG TABLET PO SCH (22:03)
[2020-11-27] MEDS ORDERED: MAGNESIUM 2 G PREMIX 50 ML IV NR (23:15)
[2020-11-27] MEDS ORDERED: AMIODARONE HCL 900 MG in DEXT 5% WATER 482 ML IV PRN (23:15)
[2020-11-28] VITALS (98 sets, daily range): BP systolic 71–141; BP diastolic 31–75
[2020-11-28] MEDS: BLOOD SUGAR DIAGNOSTIC STRIP TEST SCH ×23 (00:10→22:11)
[2020-11-28] MEDS: ONDANSETRON HCL 4MG/2ML INJ IV PRN ×4 (01:52→19:08)
[2020-11-28] MEDS: IPRATROPIUM BROMIDE (0.02%) 0.5MG/2.5ML NEB HHN SCH ×3 (02:11→20:53)
[2020-11-28] MEDS ORDERED: CALCIUM CHLORIDE 3,000 MG in DEXT 5% WATER 250 ML IV SCH (04:00)
[2020-11-28 05:35] LABS: BASOPHILS % 0.2 % (0.0-2.0); EOSINOPHILS % 0.7 % (0.0-5.0); HEMOGLOBIN. 10.1 g/dL (12.0-16.0); MEAN CORPUSCULAR HEMOGLOBIN 28.5 pg (28.0-32.0); MEAN CORPUSCULAR VOLUME 87.1 fL (81.0-99.0); MEAN PLATELET VOLUME 9.9 fl (7.4-10.4); MONOCYTES % 11.9 % (2.0-8.0); NEUTROPHILS % 74.2 % (40.0-76.0); PLATELET 226 x1000/uL (130-400); RED BLOOD CELL COUNT 3.56 mill/uL (4.2-5.4); RED CELL DISTRIBUTION WIDTH 14.9 % (11.6-14.6)
[2020-11-28] MEDS: SODIUM CHLORIDE 0.9% INJ 3ML FLUSH IVF SCH ×3 (06:00→22:10)
[2020-11-28] MEDS ORDERED: AMIODARONE HCL 150 MG in DEXT 5% WATER 100 ML IV NR (08:30)
[2020-11-28] MEDS: CARVEDILOL 3.125 MG TABLET PO SCH ×2 (09:00→22:10)
[2020-11-28] MEDS: FUROSEMIDE 40MG/4ML VIAL IVP SCH (09:07)
[2020-11-28] MEDS: ASPIRIN 81MG TABLET PO SCH (09:07)
[2020-11-28] MEDS: CLOPIDOGREL 75MG TABLET PO SCH (09:07)
[2020-11-28] MEDS: IPRATROPIUM/ALBUTEROL 0.5-3(2.5)MG/3ML NEB HHN SCH (09:09)
[2020-11-28] MEDS: BACITRACIN 15GM TUBE TOP SCH ×2 (09:10→17:40)
[2020-11-28] MEDS: ACETYLCYSTEINE 200MG/ML 20% VIAL 4ML PO SCH ×2 (09:12→20:54)
[2020-11-28] MEDS: MIDODRINE HCL 5MG TABLET PO SCH ×3 (09:13→17:44)
[2020-11-28] MEDS: MORPHINE SULFATE 2 MG/ML CPJ (NOT FOR IM USE) IV PRN (10:52)
[2020-11-28] MEDS: AMIODARONE HCL 200 MG TABLET PO SCH ×2 (10:52→17:45)
[2020-11-28] MEDS: SODIUM CHLORIDE 0.9% 1,000 ML IV SCH (11:52)
[2020-11-28] MEDS ORDERED: SODIUM POLYSTYRENE SULFONATE 15 G/60 ML BOT PO NR (13:00)
[2020-11-28] MEDS: DOCUSATE SODIUM 100MG CAPSULE PO PRN (13:18)
[2020-11-28] MEDS ORDERED: INSULIN REGULAR (DRIP) 100 UNITS in SODIUM CHLORIDE 0.9% 100 ML IV SCH (15:15)
[2020-11-28] MEDS: OXYCODONE HCL/ACETAMINOPHEN 5/325MG TABLET PO PRN (15:27)
[2020-11-28] MEDS ORDERED: METOCLOPRAMIDE HCL 10MG/2ML VIAL IV NR (15:45)
[2020-11-28] MEDS: PANTOPRAZOLE SODIUM 40 MG/VIAL IV SCH (15:55)
[2020-11-28] MEDS ORDERED: FUROSEMIDE 40MG/4ML VIAL IVP NR (17:15)
[2020-11-28] MEDS: GUAIFENESIN 200MG/10ML SUGAR FREE UDC PO PRN (17:57)
[2020-11-28] MEDS: DOPAMINE 400MG/250ML PREMIX 250 ML IV SCH (18:53)
[2020-11-28] MEDS: ATORVASTATIN CALCIUM 20MG TABLET PO SCH (22:10)
[2020-11-29] VITALS (69 sets, daily range): BP systolic 81–197; BP diastolic 36–197
[2020-11-29] MEDS: BLOOD SUGAR DIAGNOSTIC STRIP TEST SCH ×7 (00:44→21:54)
[2020-11-29] MEDS: IPRATROPIUM BROMIDE (0.02%) 0.5MG/2.5ML NEB HHN SCH ×4 (02:05→21:14)
[2020-11-29] MEDS: OXYCODONE HCL/ACETAMINOPHEN 5/325MG TABLET PO PRN ×3 (02:45→23:53)
[2020-11-29 05:59] LABS: BASOPHILS % 0.4 % (0.0-2.0); EOSINOPHILS % 0.8 % (0.0-5.0); HEMATOCRIT. 28.2 % (36.0-48.0); HEMOGLOBIN. 9.1 g/dL (12.0-16.0); LYMPHOCYTES % 11.5 % (20.0-50.0); MEAN CORPUSCULAR HEMOGLOBIN 28.5 pg (28.0-32.0); MEAN CORPUSCULAR VOLUME 87.8 fL (81.0-99.0); MEAN PLATELET VOLUME 10.7 fl (7.4-10.4); MONOCYTES % 11.3 % (2.0-8.0); PLATELET 173 x1000/uL (130-400); RED BLOOD CELL COUNT 3.21 mill/uL (4.2-5.4); RED CELL DISTRIBUTION WIDTH 15.2 % (11.6-14.6)
[2020-11-29] MEDS: SODIUM CHLORIDE 0.9% INJ 3ML FLUSH IVF SCH ×3 (06:29→21:00)
[2020-11-29] MEDS: SODIUM CHLORIDE 0.9% 1,000 ML IV SCH (06:30)
[2020-11-29] MEDS: ACETYLCYSTEINE 200MG/ML 20% VIAL 4ML PO SCH ×2 (08:24→09:44)
[2020-11-29] MEDS: MORPHINE SULFATE 2 MG/ML CPJ (NOT FOR IM USE) IV PRN (08:58)
[2020-11-29] MEDS: CARVEDILOL 3.125 MG TABLET PO SCH ×3 (09:00→21:00)
[2020-11-29] MEDS: BACITRACIN 15GM TUBE TOP SCH ×2 (09:35→17:38)
[2020-11-29] MEDS: PANTOPRAZOLE SODIUM 40 MG/VIAL IV SCH (09:46)
[2020-11-29] MEDS: AMIODARONE HCL 200 MG TABLET PO SCH ×2 (09:46→17:38)
[2020-11-29] MEDS: FUROSEMIDE 40MG/4ML VIAL IVP SCH (09:47)
[2020-11-29] MEDS: DOCUSATE SODIUM 100MG CAPSULE PO PRN ×2 (09:47→17:37)
[2020-11-29] MEDS: CLOPIDOGREL 75MG TABLET PO SCH (09:47)
[2020-11-29] MEDS: MIDODRINE HCL 5MG TABLET PO SCH ×3 (09:47→17:38)
[2020-11-29] MEDS: ASPIRIN 81MG TABLET PO SCH (09:48)
[2020-11-29] MEDS ORDERED: BLOOD SUGAR DIAGNOSTIC STRIP TEST SCH (12:00)
[2020-11-29] MEDS: LACTULOSE 20G/30ML UDC PO PRN (12:22)
[2020-11-29] MEDS ORDERED: MAGNESIUM 4 G PREMIX 100 ML IV NR (15:00)
[2020-11-29] MEDS ORDERED: DEXTROSE 50% WATER 50ML SYRINGE IV PRN (15:30)
[2020-11-29] MEDS: INSULIN LISPRO 100 UNITS/ML SUBCUT SCH ×2 (18:14→22:02)
[2020-11-29] MEDS: ATORVASTATIN CALCIUM 20MG TABLET PO SCH (20:59)
[2020-11-30] VITALS (18 sets, daily range): BP systolic 92–143; BP diastolic 43–77
[2020-11-30] MEDS ORDERED: FUROSEMIDE 40MG/4ML VIAL IVP SCH ×2 (01:00→13:15)
[2020-11-30] MEDS: IPRATROPIUM BROMIDE (0.02%) 0.5MG/2.5ML NEB HHN SCH ×4 (03:31→20:27)
[2020-11-30] MEDS: SODIUM CHLORIDE 0.9% 1,000 ML IV SCH ×2 (04:13→23:54)
[2020-11-30] MEDS: SODIUM CHLORIDE 0.9% INJ 3ML FLUSH IVF SCH ×3 (06:23→22:06)
[2020-11-30] MEDS: BLOOD SUGAR DIAGNOSTIC STRIP TEST SCH ×4 (06:25→21:53)
[2020-11-30 06:50] LABS: BASOPHILS % 0.4 % (0.0-2.0); HEMATOCRIT. 32.4 % (36.0-48.0); HEMOGLOBIN. 10.6 g/dL (12.0-16.0); LYMPHOCYTES % 18.4 % (20.0-50.0); MEAN CORPUSCULAR HEMOGLOBIN 29.3 pg (28.0-32.0); MEAN CORPUSCULAR VOLUME 89.7 fL (81.0-99.0); MEAN PLATELET VOLUME 10.2 fl (7.4-10.4); MONOCYTES % 14.4 % (2.0-8.0); NEUTROPHILS % 65.8 % (40.0-76.0); PLATELET 217 x1000/uL (130-400); RED BLOOD CELL COUNT 3.61 mill/uL (4.2-5.4)
[2020-11-30] MEDS: ACETYLCYSTEINE 200MG/ML 20% VIAL 4ML PO SCH ×2 (09:00→22:09)
[2020-11-30] MEDS: CLOPIDOGREL 75MG TABLET PO SCH (09:22)
[2020-11-30] MEDS: INSULIN LISPRO 100 UNITS/ML SUBCUT SCH ×4 (09:22→21:59)
[2020-11-30] MEDS: PANTOPRAZOLE SODIUM 40 MG/VIAL IV SCH (09:22)
[2020-11-30] MEDS: AMIODARONE HCL 200 MG TABLET PO SCH ×2 (09:22→18:06)
[2020-11-30] MEDS: FUROSEMIDE 40MG/4ML VIAL IVP SCH (09:22)
[2020-11-30] MEDS: ASPIRIN 81MG TABLET PO SCH (09:22)
[2020-11-30] MEDS: BACITRACIN 15GM TUBE TOP SCH ×2 (09:23→17:00)
[2020-11-30] MEDS: CARVEDILOL 3.125 MG TABLET PO SCH ×2 (09:23→21:00)
[2020-11-30] MEDS: MIDODRINE HCL 5MG TABLET PO SCH ×3 (09:23→18:06)
[2020-11-30] MEDS: ATORVASTATIN CALCIUM 20MG TABLET PO SCH (21:58)
[2020-11-30] MEDS: OXYCODONE HCL/ACETAMINOPHEN 5/325MG TABLET PO PRN (23:17)
[2020-12-01] VITALS (13 sets, daily range): BP systolic 100–126; BP diastolic 52–73
[2020-12-01] MEDS: IPRATROPIUM BROMIDE (0.02%) 0.5MG/2.5ML NEB HHN SCH ×4 (02:21→21:32)
[2020-12-01] MEDS: SODIUM CHLORIDE 0.9% INJ 3ML FLUSH IVF SCH ×2 (06:42→15:26)
[2020-12-01] MEDS: BLOOD SUGAR DIAGNOSTIC STRIP TEST SCH ×4 (06:45→20:39)
[2020-12-01] MEDS: ACETYLCYSTEINE 200MG/ML 20% VIAL 4ML PO SCH ×2 (09:21→20:47)
[2020-12-01] MEDS: PANTOPRAZOLE SODIUM 40 MG/VIAL IV SCH (09:21)
[2020-12-01] MEDS: CLOPIDOGREL 75MG TABLET PO SCH (09:22)
[2020-12-01] MEDS: FUROSEMIDE 40MG/4ML VIAL IVP SCH (09:22)
[2020-12-01] MEDS: MIDODRINE HCL 5MG TABLET PO SCH ×3 (09:22→16:24)
[2020-12-01] MEDS: ASPIRIN 81MG TABLET PO SCH (09:22)
[2020-12-01] MEDS: CARVEDILOL 3.125 MG TABLET PO SCH ×2 (09:23→20:31)
[2020-12-01] MEDS: AMIODARONE HCL 200 MG TABLET PO SCH ×2 (09:23→16:25)
[2020-12-01] MEDS: OXYCODONE HCL/ACETAMINOPHEN 5/325MG TABLET PO PRN (09:27)
[2020-12-01] MEDS: INSULIN LISPRO 100 UNITS/ML SUBCUT SCH ×4 (09:30→20:51)
[2020-12-01] MEDS: BACITRACIN 15GM TUBE TOP SCH ×2 (12:14→16:24)
[2020-12-01] MEDS: ONDANSETRON HCL 4MG/2ML INJ IV PRN (15:25)
[2020-12-01] MEDS: NA PHOS,M-B/NA PHOS,DI-BA ENEMA 118ML PR PRN (16:17)
[2020-12-01] MEDS: LACTULOSE 20G/30ML UDC PO PRN (16:17)
[2020-12-01] MEDS ORDERED: BUDESONIDE 0.5MG/2ML NEB HHN SCH (18:00)
[2020-12-01] MEDS: ATORVASTATIN CALCIUM 20MG TABLET PO SCH (20:30)
== END 2020-12-01 23:10 | DRG 235 ==
LOC: ER 08:36 → 5WST 12:30 → ENRESERV 14:41 → CVICU 11-26 08:40 → 3WST 11-29 18:48
PROVIDERS: ADMIT Internal Medicine; ATTEND Internal Medicine
PROC: 5A09357 Assistance with Respiratory Ventilation, Less than 24 Consecutive Hours, Continuous Positive Airway Pressure (ICD-10-PCS; 2020-11-22)
PROC: 02100Z9 Bypass Coronary Artery, One Artery from Left Internal Mammary, Open Approach (ICD-10-PCS; principal; 2020-11-26)
PROC: 021109W Bypass Coronary Artery, Two Arteries from Aorta with Autologous Venous Tissue, Open Approach (ICD-10-PCS; 2020-11-26)
PROC: 06BQ4ZZ Excision of Left Saphenous Vein, Percutaneous Endoscopic Approach (ICD-10-PCS; 2020-11-26)
PROC: 30233N1 Transfusion of Nonautologous Red Blood Cells into Peripheral Vein, Percutaneous Approach (ICD-10-PCS; 2020-11-26)
DX: I25.10 Atherosclerotic heart disease of native coronary artery without angina pectoris (principal); J96.00 Acute respiratory failure, unspecified whether with hypoxia or hypercapnia; I21.4 Non-ST elevation (NSTEMI) myocardial infarction; I50.33 Acute on chronic diastolic (congestive) heart failure; E87.1 Hypo-osmolality and hyponatremia; I47.1 Supraventricular tachycardia; I11.0 Hypertensive heart disease with heart failure; I27.20 Pulmonary hypertension, unspecified; E11.9 Type 2 diabetes mellitus without complications; E78.5 Hyperlipidemia, unspecified; I48.91 Unspecified atrial fibrillation; Z20.822 Contact with and (suspected) exposure to COVID-19; I49.3 Ventricular premature depolarization; Z79.84 Long term (current) use of oral hypoglycemic drugs; Z87.891 Personal history of nicotine dependence; Z88.5 Allergy status to narcotic agent; Z88.0 Allergy status to penicillin; Z79.899 Other long term (current) drug therapy; Z79.82 Long term (current) use of aspirin; Z98.1 Arthrodesis status; J44.9 Chronic obstructive pulmonary disease, unspecified
CPT/HCPCS: 36415; 36600; 71045; 80048; 80053; 80061; 82375; 82550; 82553; 82805; 82962; 83036; 83735; 83880; 84100; 84132; 84484; 85014; 85018; 85025; 86850; 86900; 86920; 87426; 93005; 93880; 93970; 94640; 94660; 97110; 97116; 97162; 97166; 97530; 97535; 99291; A6261; C9113; J0282; J1250; J1265; J1644; J1650; J1815; J1885; J1940; J2060; J2270; J2405; J2440; J2704; J2710; J2720; J2765; J2930; J3010; J3370; J3475; J3490; J7030; J7040; J7050; J7060; J7608; J7626; P9016; P9041; P9047